=== PATIENT | female | born 1985 | race Two or more races ===

== ENCOUNTER 2019-04-29 00:35 | Outpatient (CLI) | payer OTHER ==
[~2019-04-29] VITALS: Ht 167.6 cm; Wt 68.2 kg
[2019-04-29 00:48] VITALS: BP 108/56; PULSE 88; RESP 18; Ht 167.6 cm; Wt 68.2 kg
[2019-04-29] MEDS ORDERED: ACETAMINOPHEN 500 MG TAB PO STA (00:59)
[2019-04-29] MEDS ORDERED: PREN-93 PO (01:20)
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
== END 2019-04-29 03:38 | disposition home or self-care (01) ==
LOC: L-D 00:35 → OBT 00:35
PROVIDERS: ATTEND Obstetrics & Gynecology
DX: O9A.213 Injury, poisoning and certain other consequences of external causes complicating pregnancy, third trimester (principal); M54.9 Dorsalgia, unspecified; V49.9XXA Car occupant (driver) (passenger) injured in unspecified traffic accident, initial encounter; Y92.89 Other specified places as the place of occurrence of the external cause; Z3A.30 30 weeks gestation of pregnancy
CPT/HCPCS: 76815; 76817; 81001; 85025; 85460; 86850; 86900; 86901; 87086; Z7500; G0463